=== PATIENT | male | born 1945 | race Caucasian/White ===

== ENCOUNTER 2018-09-17 10:09 | Emergency (ER) | payer MEDICARE ==
[~2018-09-17] VITALS: Wt 77.6 kg
[~2018-09-17 10:09] MED LIST: ASPI325T32 PO; ATOR10TA65 PO; CLOP75TA27 PO; NITR0.4T32 SL
[2018-09-17] MEDS ORDERED: MECLIZINE 12.5 MG TAB PO ONE (10:30)
--- NOTE | 2018-09-17 10:39 | ERD ---
ER Documentation Chief Complaint Chief Complaint DIZZINESS, ONSET THIS AM, NO PADILLA, NO CP, NO SOB HPI 72-year-old gentleman very pleasant who presents to the emergency room after waking up this morning complaining of vertigo. He describes a room spinning sensation that is worse with eye opening and head movement worse when he is looking to the left. He denies any slurred speech or motor weakness. The patient does have a history of cardiac disease and stents but he denies any chest pain or pressure or anginal equivalent. Symptoms are mild to moderate at this time. ROS All systems reviewed and are negative except as per history of present illness. Medications Home Meds Active Scripts Meclizine Hcl* (Antivert*) 12.5 Mg Tab, 12.5 MG PO Q6H PRN for DIZZINESS, #20 TAB Prov:DESIRE ZHAO MD 09/17/18 Clopidogrel Bisulfate (Clopidogrel) 75 Mg Tablet, 75 MG PO DAILY for 30 Days, TAB Prov:NARA KAMARA MD 03/06/16 Aspirin (Aspir-Nayeli) 325 Mg Tablet.dr, 325 MG PO DAILY for 30 Days Prov:NARA KAMARA MD 03/06/16 Clopidogrel Bisulfate (Clopidogrel) 75 Mg Tablet, 75 MG PO DAILY for 28 Days, TAB Prov:NARA KAMARA MD 11/20/15 Atorvastatin Calcium (Atorvastatin Calcium) 10 Mg Tablet, 10 MG PO QHS for 28 Days, TAB Prov:NARA KAMARA MD 11/20/15 Reported Medications Nitroglycerin* (Nitroglycerin* SL) 0.4 Mg Tab.subl, 0.4 MG SL Q5MIN PRN for CHEST PAIN, BOTTLE 11/19/15 Allergies Allergies: Coded Allergies: No Known Allergy (Unverified , 03/05/16) PMhx/Soc History of Surgery: Yes (HERNIA REPAIR, KNEE SURGERY) Anesthesia Reaction: No Hx Neurological Disorder: No Hx Respiratory Disorders: No Hx Cardiac Disorders: Yes (HTN,HYPERCHOLESTEROLEMIA, PTCA/STENT) Hx Psychiatric Problems: No Hx Miscellaneous Medical Probl: No Hx Alcohol Use: Yes Hx Substance Use: No Hx Tobacco Use: No FmHx Family History: No diabetes Physical Exam Vitals Vital Signs Date Temp Pulse Resp B/P (MAP) Pulse Ox O2 O2 Flow FiO2 Time Delivery Rate 09/17/18 52 17 115/79 95 Room Air 11:40 (91) 09/17/18 46 17 126/83 98 Room Air 10:50 (97) 09/17/18 97.3 56 17 132/76 98 10:12 (94) Physical Exam General: Well developed, well nourished, no acute distress Head: Normocephalic, atraumatic. Eyes: Pupils equally reactive, EOM intact ENT: Moist mucous membranes Neck: Supple, no lymphadenopathy Respiratory: Lungs clear bilaterally, no distress Cardiovascular: RRR, no murmurs, rubs, or gallops Abdominal: Soft, non-tender, non-distended, no peritoneal signs : Deferred MSK: No edema, no unilateral swelling, 5/5 strength Neurologic: Alert and oriented, moving all extremities, normal speech, no focal weakness, no cerebellar signs, reproducible horizontal nystagmus worse with left gaze. No vertical nystagmus or rotary nystagmus. No pronator drift. Normal rapid alternating movements, no ataxia, steady gait. Skin: No rash Psych: Normal mood Results 24 hrs Current Medications Medications Dose Sig/Reynaldo Start Time Status Last (Trade) Ordered Route PRN Stop Time Admin Dose Reason Admin Meclizine 12.5 mg ONCE ONCE 09/17/18 DC 09/17/18 HCl PO 10:30 10:49 (Antivert) 09/17/18 10:31 Procedures/MDM EKG, MONITORS, & DIAGNOSTIC IMAGING: CT brain: IMPRESSION: No evidence of acute intracranial pathology. There is generalized volume loss with prominent subarachnoid spaces along the fr ontal convexities as well as posterior fossa bilaterally. RPTAT: KK EKG: I reviewed and interpreted a 12-lead EKG. Rhythm: Sinus bradycardia with right bundle branch block, unchanged from baseline ST Changes: No contiguous ST segment elevations T waves: No contiguous T wave inversions Impression: Sinus bradycardia MEDICAL DECISION MAKING: Patient's clinical exam and history of very consistent with likely acute benign positional vertigo. The patient has reproducible horizontal nystagmus with worsening gaze to the left. Patient has no other neurologic deficits that would be concerning for central vertigo. He has no slurred speech, normal cerebellar function and steady gait. He does have a cardiac history but his presentation is not consistent with orthostasis and is not consistent with anginal equivalent. No indication for EKG troponin or laboratory testing. CT of the brain would be appropriate given his age to rule out mass. Again very low clinical concern for stroke. Meclizine will be appropriate. Lower dose given secondary to age. The patient's heart rate is consistent with baseline after review of electronic medical record. I do not believe that his symptoms are consistent with symptomatic bradycardia. ER COURSE: * The patient's EKG was obtained because of persistent bradycardia. However reviewing old EKGs it is identical. The patient has no chest pain, no anginal equivalent. I discussed the case with Dr. Kilpatrick and he agrees this is consistent with baseline. Again the patient is not hypotensive and not consistent with symptomatic bradycardia * Symptoms completely resolved with meclizine. I feel the patient can be safely discharged with a diagnosis of peripheral vertigo. During the patient's encounter translation services were utilized Language: Icelandic Source: In person CONSULTATION: None DISPOSITION PLAN: The patient does not have an identifiable emergent medical condition that warrants inpatient hospitalization at this time. The patient is deemed safe for discharge with outpatient follow-up. We discussed follow up with the patient's primary care doctor within 24 to 48 hours as needed. We also discussed return to the emergency room for worsening symptoms or worsening condition. Outpatient referral: None required Discharge Medications: Meclizine Departure Diagnosis: Primary Impression: Peripheral vertigo Laterality: unspecified laterality Qualified Codes: H81.399 - Other peripheral vertigo, unspecified ear Additional Impression: Sinus bradycardia Condition: Stable DESIRE ZHAO MD Sep 17, 2018 10:39
[2018-09-17 11:40] VITALS: BP 115/79; PULSE 52; RESP 17
[2018-09-17] MEDS ORDERED: MECL12.574 PO (11:46)
== END 2018-09-17 12:20 | disposition home or self-care (01) ==
LOC: E/R 10:09
DX: H81.10 Benign paroxysmal vertigo, unspecified ear (principal); R00.1 Bradycardia, unspecified; I10 Essential (primary) hypertension; Z79.82 Long term (current) use of aspirin
CPT/HCPCS: 70450; 93005